=== PATIENT | male | born 1985 | race Caucasian/White ===

== ENCOUNTER 2020-04-28 10:19 | Outpatient (REF) | payer OTHER, SELFPAY | END 2020-04-28 10:20 | disposition home or self-care (01) | LOC: HO.LAB 10:19 | PROVIDERS: Visit Provider Internal Medicine | DX: Z20.828 Contact with and (suspected) exposure to other viral communicable diseases (principal) | CPT/HCPCS: 87635 ==

== ENCOUNTER 2020-06-22 18:41 | Emergency (ER) | payer OTHER, SELFPAY ==
[2020-06-22 18:53] VITALS: BP 192/131; PULSE 88; RESP 18; TEMP 37.1; O2SAT 97; BMI 40.1
--- NOTE | 2020-06-22 19:08 | ECG_ITS ---
Test Reason : HYPERTENSION Blood Pressure : / mmHG Vent. Rate : 072 BPM Atrial Rate : 072 BPM P-R Int : 188 ms QRS Dur : 088 ms QT Int : 388 ms P-R-T Axes : 031 -11 -04 degrees QTc Int : 424 ms Normal sinus rhythm Voltage criteria for left ventricular hypertrophy Abnormal ECG No previous ECGs available Referred By: Rush Nava Electronically Signed By:FLORES ELIZABETH
--- NOTE | 2020-06-22 19:11 | CT_ITS ---
EXAMINATION: CT BRAIN AND CHEST X-RAY. CLINICAL INFORMATION: Uncontrolled high blood pressure. COMPARISON: None TECHNIQUE: 5 mm thin and reformatted 2 mm thin sagittal and coronal images of brain were obtained. DLP 756. Chest AP upright portable. FINDINGS: BRAIN: There is no acute intra-axial, extra-axial bleed, masses or midline shift. There is no acute infarct in evolution. The pollard to white matter differentiation is maintained. The lateral ventricles are symmetrical in size and configuration without enlargement. Bone windows reveal no calvarial abnormality. There is no scalp soft tissue abnormality. There is diffuse mucoperiosteal thickening in bilateral ethmoid and sphenoid sinuses. There is a small polyp or retention cyst in right maxillary sinus. The mastoid air cells are well-aerated. CHEST: The lungs are hypoexpanded but clear of acute process. The heart size and pulmonary vascularity is normal. No gross bony or ligamentous seen. CT/CT head/brain wo con IMPRESSION: No acute intracranial process seen. Chronic ethmoid and sphenoid sinus inflammatory changes. Small polyp or retention cyst in right maxillary sinus. Unremarkable chest exam.
--- NOTE | 2020-06-22 19:26 | ED.GENADULT ---
HPI - General Adult General Chief complaint: Upper Respiratory Symptoms Stated complaint: Sore Throat Time Seen by Provider: 06/22/20 18:55 Source: patient Mode of arrival: ambulatory Limitations: no limitations History of Present Illness HPI narrative: patient presents to the ED for sore throat since last night. Patient denies any coughing, fever, chills, or shortness of breaths. Upon evaluation this patient blood pressure systolic was 192/131 and repeat was another systolic of 203. Patient states history of high blood pressure and admits to being noncompliant with his high blood pressure medications for at least a month. Patient denies any headache, dizziness, slurred speech, loss of vision, or paralysis of extremities. Related Data Previous Rx's Medication Instructions Recorded amlodipine 5 mg PO DAILY #20 tab 06/23/20 Allergies Allergy/AdvReac Type Severity Reaction Status Date / Time No Known Allergies Allergy Verified 06/22/20 19:06 Review of Systems Review of Systems: Yes all other systems are reviewed and are negative Constitutional: Constitutional: Reports as per HPI and Reports no additional constitutional complaints Eyes: Eyes: Reports as per HPI and Reports no additional eye complaints ENT: Reports system reviewed and no additional complaints, except as documented, Reports as per HPI and Reports sore throat Cardiovascular: Cardiovascular: Reports as per HPI, Reports no additional cardiovascular complaints, Denies chest pain, Denies dyspnea on exertion, Denies orthopnea and Denies paroxysmal nocturnal dyspnea Respiratory: Respiratory: Reports as per HPI, Reports no additional respiratory complaints, Denies cough and Denies dyspnea on exertion Musculoskeletal: Musculoskeletal: Reports no additional musculoskeletal complaints and Reports as per HPI Neurologic: Reports system reviewed and no additional complaints, except as documented and Reports as per HPI Psychiatric: Psychiatric: Reports no additional psychiatric complaints and Reports as per HPI FORMERLY [facility] Past Medical History Medical History (Updated 06/23/20 @ 02:59 by BRITNEY Khan) Asthma HTN (hypertension) Social History Social History Alcohol intake: current Alcohol intake frequency: holidays/special occasions only Use of substances other than those prescribed or required for medical reasons: No Advance Directives: No Advance Directives Information Provided: No Physical Exam Vital Signs: Vital Signs: Last Vital Signs Temp 98.6 F 06/22/20 22:00 Pulse 63 06/23/20 01:03 Resp 16 06/23/20 01:03 BP 127/85 06/23/20 01:03 Pulse Ox 99 06/23/20 01:03 Body Mass Index 40.1 Const: General: cooperative, healthy appearing, comfortable, no acute distress, well developed, alert and awake Orientation/consciousness: patient oriented x3 HENMT: Head: Yes normal to inspection and Yes No palpable skull fracture present Eyes: General: appearance normal, both eyes and all related structures Neck: Neck: Yes normal visual inspection, Yes full ROM, Yes no lymphadenopathy, Yes no meningeal signs, Yes trachea midline, Yes supple and Yes tender Chest: Chest palpation & inspection: normal inspection of the chest and normal palpation of entire chest wall Resp: Effort & Inspection: normal respiratory effort and able to speak in complete sentences Auscultation: clear to auscultation bilaterally Cardio: Jugular venous distension: no JVD Heart sounds: S1 normal heart sound present and S2 normal heart sound present GI: Inspection: Yes normal to inspection Palpation (GI): Soft to palpation, not firm, nontender, no guarding and not rigid : General: No CVA tenderness and Yes no CVA tenderness Back/Spine/Pelvis: Back: no CVA tenderness, No CVA tenderness and No back tenderness Skin: General skin exam: no rashes or lesions noted Neuro: Other: Negative facial droop. Negative pronator drift. Motor exam and strength of all extremities are equal. Speech is normal. [id number] test and rapid hand movement normal. Negative Romberg. General: patient oriented x3, gait normal, no meningeal signs and CN's II-XI intact bilaterally Cranial nerves: Yes CN's II-XII intact bilaterally Extrem: General: Yes normal to inspection and Yes full ROM Psych: Appearance: grossly normal, well kempt and not disheveled Course Course Course Narrative: Patient has asymptomatic uncontrolled high blood pressure. Due to patient stating not being on medication for months and repeat systolic was over 200 labs will be ordered to make sure there is no kidney of heart injury. Patient had EKG. Patient also have head CT make sure there is no stroke. Patient presently physical exam does not indicate stroke. Patient will have COVID swab and rapid strep. Reevaluation(s) Reevaluation #1: Patient's blood pressure improved dramatically after receiving clonidine and labetalol. Patient's initial troponin is negative. Patient's head CT negative for stroke. First troponin negative. Second troponin pending. Initial chemistry shows acute renal failure. Will give fluids and repeat chemistry Time: 23:50 Reevaluation #2: patient's repeat chemistry came back normal. acute renal failure resolved. Patient discharged with amlodopine. Patient informed to follow up with PCP. Time: 02:57 Medical Decision Making MDM Narrative Medical decision making narrative: uncontrolled high blood pressure Lab Data Result diagrams: 06/22/20 19:53 06/23/20 01:03 Labs: Lab Results 06/22/20 06/22/20 06/22/20 Range/Units 19:53 19:53 19:53 WBC 8.0 (4.8-10.8) X10*3/uL RBC 5.00 (4.60-5.80) X10*6/uL Hgb 14.8 (14.0-18.0) g/dl Hct 42.8 (42-52) % MCV 85.6 (80-98) fL MCH 29.6 (27.0-33.0) pg MCHC 34.6 (31.0-36.0) g/dl RDW 12.7 (11.0-16.0) % Plt Count 285 (160-400) X10*3/uL MPV 9.7 (9.4-12.4) fL Immature Gran % (Auto) 0.4 (0.0-0.4) % Neut % (Auto) 56.6 (45-73) % Lymph % (Auto) 33.7 (20-40) % [place] % (Auto) 6.7 (2-11) % Eos % (Auto) 2.4 (0-4) % Baso % (Auto) 0.2 (0-2) % Lymph # (Auto) 2.7 (1.2-4.9) X10*3/uL [place] # (Auto) 0.5 (0.1-1.2) X10*3/uL Eos # (Auto) 0.2 (0.0-0.4) X10*3/uL Baso # (Auto) 0.0 (0.0-0.2) X10*3/uL Abs Immat Gran (auto) 0.03 (0.00-0.03) X10*3/uL Absolute Neuts (auto) 4.5 (2.0-8.3) X10*3/uL Absolute Nucleated RBC 0.000 (0.0-0.012) X10*3/uL Nucleated RBC % (auto) 0.0 (0.0-0.2) /100WBC PT (10.8-13.0) SEC INR (0.9-1.1) APTT (24.1-38.0) SEC D-Dimer NG/ML Sodium 139 (135-145) mmol/L Potassium 4.3 (3.3-5.1) mmol/l Chloride 103 (96-108) mmol/L Carbon Dioxide 25 (22-29) mmol/L Anion Gap 15 (12-20) BUN 17 H (9-16) mg/dL Creatinine 1.46 H (0.5-1.4) mg/dL Estim Creat Clear Calc 73.7 Estimated GFR 54 Random Glucose 101 (60-115) mg/dL Calcium 9.1 (8.4-10.2) mg/dL Ferritin (20-250) ng/mL Total Bilirubin 1.3 H (0.0-1.0) mg/dL AST 20 (5-37) U/L ALT 21 (0-40) U/L Alkaline Phosphatase 50 (39-117) U/L Lactate Dehydrogenase (118-273) U/L Troponin I High Sens < 3.5 (<3.5-35.0) ng/L Total Protein 7.5 (6.5-8.0) g/dL Albumin 4.6 (3.5-5.0) g/dL Procalcitonin ng/mL 06/22/20 06/22/20 06/22/20 Range/Units 19:53 19:53 19:53 WBC (4.8-10.8) X10*3/uL RBC (4.60-5.80) X10*6/uL Hgb (14.0-18.0) g/dl Hct (42-52) % MCV (80-98) fL MCH (27.0-33.0) pg MCHC (31.0-36.0) g/dl RDW (11.0-16.0) % Plt Count (160-400) X10*3/uL MPV (9.4-12.4) fL Immature Gran % (Auto) (0.0-0.4) % Neut % (Auto) (45-73) % Lymph % (Auto) (20-40) % [place] % (Auto) (2-11) % Eos % (Auto) (0-4) % Baso % (Auto) (0-2) % Lymph # (Auto) (1.2-4.9) X10*3/uL [place] # (Auto) (0.1-1.2) X10*3/uL Eos # (Auto) (0.0-0.4) X10*3/uL Baso # (Auto) (0.0-0.2) X10*3/uL Abs Immat Gran (auto) (0.00-0.03) X10*3/uL Absolute Neuts (auto) (2.0-8.3) X10*3/uL Absolute Nucleated RBC (0.0-0.012) X10*3/uL Nucleated RBC % (auto) (0.0-0.2) /100WBC PT 12.5 (10.8-13.0) SEC INR 1.1 (0.9-1.1) APTT 33.2 (24.1-38.0) SEC D-Dimer < 200 NG/ML Sodium (135-145) mmol/L Potassium (3.3-5.1) mmol/l Chloride (96-108) mmol/L Carbon Dioxide (22-29) mmol/L Anion Gap (12-20) BUN (9-16) mg/dL Creatinine (0.5-1.4) mg/dL Estim Creat Clear Calc Estimated GFR Random Glucose (60-115) mg/dL Calcium (8.4-10.2) mg/dL Ferritin 76 (20-250) ng/mL Total Bilirubin (0.0-1.0) mg/dL AST (5-37) U/L ALT (0-40) U/L Alkaline Phosphatase (39-117) U/L Lactate Dehydrogenase 197 (118-273) U/L Troponin I High Sens (<3.5-35.0) ng/L Total Protein (6.5-8.0) g/dL Albumin (3.5-5.0) g/dL Procalcitonin < 0.02 ng/mL 12/09/20 12/10/20 Range/Units 22:52 01:03 WBC (4.8-10.8) X10*3/uL RBC (4.60-5.80) X10*6/uL Hgb (14.0-18.0) g/dl Hct (42-52) % MCV (80-98) fL MCH (27.0-33.0) pg MCHC (31.0-36.0) g/dl RDW (11.0-16.0) % Plt Count (160-400) X10*3/uL MPV (9.4-12.4) fL Immature Gran % (Auto) (0.0-0.4) % Neut % (Auto) (45-73) % Lymph % (Auto) (20-40) % [place] % (Auto) (2-11) % Eos % (Auto) (0-4) % Baso % (Auto) (0-2) % Lymph # (Auto) (1.2-4.9) X10*3/uL [place] # (Auto) (0.1-1.2) X10*3/uL Eos # (Auto) (0.0-0.4) X10*3/uL Baso # (Auto) (0.0-0.2) X10*3/uL Abs Immat Gran (auto) (0.00-0.03) X10*3/uL Absolute Neuts (auto) (2.0-8.3) X10*3/uL Absolute Nucleated RBC (0.0-0.012) X10*3/uL Nucleated RBC % (auto) (0.0-0.2) /100WBC PT (10.8-13.0) SEC INR (0.9-1.1) APTT (24.1-38.0) SEC D-Dimer NG/ML Sodium 140 (135-145) mmol/L Potassium 4.0 (3.3-5.1) mmol/l Chloride 106 (96-108) mmol/L Carbon Dioxide 25 (22-29) mmol/L Anion Gap 13 (12-20) BUN 15 (9-16) mg/dL Creatinine 1.06 (0.5-1.4) mg/dL Estim Creat Clear Calc 101.6 Estimated GFR > 60 Random Glucose 110 (60-115) mg/dL Calcium 8.5 D (8.4-10.2) mg/dL Ferritin (20-250) ng/mL Total Bilirubin 1.0 (0.0-1.0) mg/dL AST 17 (5-37) U/L ALT 18 (0-40) U/L Alkaline Phosphatase 40 (39-117) U/L Lactate Dehydrogenase (118-273) U/L Troponin I High Sens < 3.5 (<3.5-35.0) ng/L Total Protein 6.6 (6.5-8.0) g/dL Albumin 4.0 (3.5-5.0) g/dL Procalcitonin ng/mL ECG Data Interpretation: normal sinus rhythm. Ventricular rate 72. Pr interval 188. QRS 88, QTC 424. Negative STEMI Discharge Plan Discharge Clinical Impression: HBP (high blood pressure) Patient Disposition: Home, Self-Care Instructions: Hypertensive Crisis (ED) Additional Instructions: return to ED immediately for any headache, slurred speech, loss of vision, paralysis of extremities, chest pain, shortness of breath, dizziness, or any other concerning symptoms. Please follow-up with your PCP. Prescriptions: New amlodipine 5 mg tablet 5 mg PO DAILY Qty: 20 RF: 0 Interventions: ED Discharge Assessment Last Done: 06/23/20 03:13 Print Language: Maori
--- NOTE | 2020-06-22 19:58 | XR_ITS ---
EXAMINATION: CT BRAIN AND CHEST X-RAY. CLINICAL INFORMATION: Uncontrolled high blood pressure. COMPARISON: None TECHNIQUE: 5 mm thin and reformatted 2 mm thin sagittal and coronal images of brain were obtained. DLP 756. Chest AP upright portable. FINDINGS: BRAIN: There is no acute intra-axial, extra-axial bleed, masses or midline shift. There is no acute infarct in evolution. The pollard to white matter differentiation is maintained. The lateral ventricles are symmetrical in size and configuration without enlargement. Bone windows reveal no calvarial abnormality. There is no scalp soft tissue abnormality. There is diffuse mucoperiosteal thickening in bilateral ethmoid and sphenoid sinuses. There is a small polyp or retention cyst in right maxillary sinus. The mastoid air cells are well-aerated. CHEST: The lungs are hypoexpanded but clear of acute process. The heart size and pulmonary vascularity is normal. No gross bony or ligamentous seen. XR/XR chest 1V IMPRESSION: No acute intracranial process seen. Chronic ethmoid and sphenoid sinus inflammatory changes. Small polyp or retention cyst in right maxillary sinus. Unremarkable chest exam.
[2020-06-22 20:01] VITALS: BP 187/113; PULSE 75
[2020-06-22] MEDS: cloNIDine HCL 0.2 MG TABLET PO (20:01)
--- NOTE | 2020-06-22 20:03 | PC.NURSE ---
patient a&ox3, iv inserted, labs drawn, vitals obtained, ekg obtained, cxr obtained, pt medicated per order, hospital monitor nsr 70s, will continue to monitor
[2020-06-22 20:10] LABS: Basophils Percent Auto 0.2 % (0-2); Eosinophils Absolute Auto 0.2 X10*3/uL (0.0-0.4); Eosinophils Percent Auto 2.4 % (0-4); Hematocrit 42.8 % (42-52); Hemoglobin 14.8 g/dl (14.0-18.0); Imm Gran Abs Auto 0.03 X10*3/uL (0.00-0.03); Imm Gran Pct Auto 0.4 % (0.0-0.4); Lymphocytes Absolute Auto 2.7 X10*3/uL (1.2-4.9); Lymphocytes Percent Auto 33.7 % (20-40); MANUAL DIFF FLAG NO; Mean Corpuscular HGB Conc 34.6 g/dl (31.0-36.0); Mean Corpuscular Hemoglobin 29.6 pg (27.0-33.0); Mean Corpuscular Volume 85.6 fL (80-98); Mean Platelet Volume 9.7 fL (9.4-12.4); Monocytes Absolute Auto 0.5 X10*3/uL (0.1-1.2); Monocytes Percent Auto 6.7 % (2-11); Neutrophils Absolute Auto 4.5 X10*3/uL (2.0-8.3); Neutrophils Percent Auto 56.6 % (45-73); Platelet Count 285 X10*3/uL (160-400); Red Cell Distribution Width 12.7 % (11.0-16.0)
[2020-06-22 20:17] LABS: INTERNATIONAL NORM RATIO 1.1 (0.9-1.1); Prothrombin Time 12.5 SEC (10.8-13.0)
[2020-06-22 20:19] LABS: Partial Thromboplastin Time 33.2 SEC (24.1-38.0)
[2020-06-22 20:33] LABS: Lactate Dehydrogenase 197 U/L (118-273)
[2020-06-22 20:38] LABS: Troponin-I High Sensitivity < 3.5 ng/L (<3.5-35.0)
[2020-06-22 20:46] LABS: Alanine Aminotransferase 21 U/L (0-40); Albumin Level 4.6 g/dL (3.5-5.0); Alkaline Phosphatase 50 U/L (39-117); Anion Gap 15 (12-20); Aspartate Amino Transferase 20 U/L (5-37); Bilirubin Total 1.3 mg/dL (0.0-1.0); Blood Urea Nitrogen 17 mg/dL (9-16); Calcium 9.1 mg/dL (8.4-10.2); Carbon Dioxide 25 mmol/L (22-29); Chloride 103 mmol/L (96-108); Creatinine Clr Calc Pharmacy 73.7; Estimated Glomerular Filt Rate 54; Glucose Random 101 mg/dL (60-115); Potassium 4.3 mmol/l (3.3-5.1); Sodium 139 mmol/L (135-145); Total Protein 7.5 g/dL (6.5-8.0)
[2020-06-22 20:49] VITALS: BP 164/117; PULSE 73; RESP 18; TEMP 37.3; O2SAT 96
[2020-06-22 20:53] LABS: Procalcitonin < 0.02 ng/mL
[2020-06-22 20:55] LABS: Ferritin 76 ng/mL (20-250)
[2020-06-22 22:00] VITALS: BP 140/95; PULSE 72; RESP 18; TEMP 37; O2SAT 94
--- NOTE | 2020-06-22 22:12 | PC.NURSE ---
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
--- NOTE | 2020-06-22 22:53 | PC.NURSE ---
lab drawn per order
[2020-06-22 23:31] LABS: D Dimer < 200 NG/ML
[2020-06-22] MEDS: 0.9 % Sodium Chloride 1,000 ML 500 ML IVCONT (23:37)
--- NOTE | 2020-06-22 23:38 | PC.NURSE ---
IVF infusing per EMAR due to increased kidney function values. Plan to repeat chem after IVF. VSS. Pt resting in bed, denies pain/discomfort at this time. Continue to monitor.
[2020-06-22 23:39] VITALS: BP 137/94; PULSE 63; RESP 16; O2SAT 95
[2020-06-22 23:43] LABS: Troponin-I High Sensitivity < 3.5 ng/L (<3.5-35.0)
[2020-06-23 00:29] VITALS: O2SAT 77
[2020-06-23 01:03] VITALS: BP 127/85; PULSE 63; RESP 16; O2SAT 99
--- NOTE | 2020-06-23 01:04 | PC.NURSE ---
Repeat chemistry obtained and sent. VSS. Pt resting in bed, aware of plan of care. Continue to monitor.
[2020-06-23 02:51] LABS: Alanine Aminotransferase 18 U/L (0-40); Alkaline Phosphatase 40 U/L (39-117); Anion Gap 13 (12-20); Aspartate Amino Transferase 17 U/L (5-37); Blood Urea Nitrogen 15 mg/dL (9-16); Calcium 8.5 mg/dL (8.4-10.2); Carbon Dioxide 25 mmol/L (22-29); Chloride 106 mmol/L (96-108); Creatinine Clr Calc Pharmacy 101.6; Estimated Glomerular Filt Rate > 60; Glucose Random 110 mg/dL (60-115); Sodium 140 mmol/L (135-145); Total Protein 6.6 g/dL (6.5-8.0)
[2020-06-23 03:17] VITALS: BP 139/86; PULSE 57; RESP 16; O2SAT 98
== END 2020-06-23 03:19 | disposition home or self-care (01) ==
PROVIDERS: Physician Assistant; Emergency Provider Emergency Medicine
DX: I16.9 Hypertensive crisis, unspecified (principal); J02.9 Acute pharyngitis, unspecified; Z20.828 Contact with and (suspected) exposure to other viral communicable diseases; I10 Essential (primary) hypertension; Z91.14 Patient's other noncompliance with medication regimen
CPT/HCPCS: 36415; 70450; 71045; 80053; 82728; 83615; 84145; 84484; 85025; 85379; 85610; 85730; 87071; 87880; 93005; 96361; 96374; 99284; 99285; U0003

== ENCOUNTER 2020-11-18 08:28 | Outpatient (REF) | payer OTHER, SELFPAY ==
[2020-11-18 08:46] LABS: COVID-19 Test Negative (Negative)
== END 2020-11-18 08:29 | disposition home or self-care (01) ==
LOC: HO.LAB 08:28
PROVIDERS: Visit Provider Internal Medicine
DX: Z20.822 Contact with and (suspected) exposure to COVID-19 (principal)
CPT/HCPCS: 36415; 87635; C9803